=== PATIENT | female | born 1990 | race Caucasian/White ===

== ENCOUNTER → 2016-07-23 | Outpatient (CLI) | payer OTHER ==
[~2016-07-23] MED LIST: ACET-1256 PO
--- NOTE | 2016-07-23 16:02 | MAMMOGRAPHY REPORT ---
ULTRASOUND OF LEFT BREAST: 07/23/2016 CLINICAL HISTORY: 26 year old woman presents for follow-up of a benign-appearing circumscribed mass i n the 12:00 left breast. She is currently undergoing treatment for tuberculosis. COMPARISON: Comparison is made to exam dated: 01/23/2016 ultrasound - [facility]. FINDINGS: Targeted real-time high-resolution grayscale ultrasound was performed in the 12:00 left br east, 1 cm from the nipple to reevaluate the circumscribed hypoechoic parallel solid-appearing mass, as described on prior ultrasound. It is again seen and currently measures 13.2 x 8.6 x 12.1 mm. The re are a few internal anechoic cystic appearing areas within which appear similar to the prior exam. However, the mass is slightly larger compared to the prior exam at which time it measured 11.8 x 7.3 x 9.6 mm. Given slight interval increase in all 3 dimensions this mass is considered indeterminate and definitive characterization with tissue sampling is recommended. 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 IMPRESSION: ACR BI-RADS CATEGORY 4: SUSPICIOUS - FOLLOW-UP RECOMMENDED Ultrasound-guided core needle biopsy is recommended for a solid circumscribed 13 mm mass in the 12:00 left breast which has slightly increased in size comparing to the prior ultrasound dated 01/23/2016. These results and recommendations were discussed with the patient at the time of the exam. She tenta tively scheduled the biopsy prior to leaving our department. Leah Quesada M.D. ay/:07/23/2016 13:51:44 [employer]: Shana PARIKH)([place]), [facility] letter sent: Abnormal 4/5 BI-RADS Code: ACR BI-RADS Category 4: Suspicious
== END | disposition home or self-care (01) ==
LOC: C.MAMM 10:01
PROVIDERS: ATTEND Internal Medicine
DX: N63 Unspecified lump in breast (principal)